=== PATIENT | female | born 1930 | race Caucasian/White ===

== ENCOUNTER 2016-10-03 13:02 | Day surgery (SDC) | payer OTHER ==
[~2016-10-03 13:02] MED LIST: HCTZ50TA PO; MAGN30TA PO; OMEP20TA PO; SIMV40TA PO
[2016-10-03 15:15] VITALS: BP 167/61; PULSE 64; RESP 20; O2SAT 96
--- NOTE | 2016-10-03 15:20 | RADRPT ---
EXAM DATE/TIME: 10/03/2016 13:45 [facility] COMPARISON: No previous studies available for comparison. EXTERNAL COMPARISON : [facility], CT Soft Tissue Neck, August 17, 2016 INDICATIONS : Right neck lymph node enlarged. MEDICAL HISTORY : Carcinoma, breast. Hypertension. CKD. SURGICAL HISTORY : Mastectomy, bilateral. Left knee surgery. ENCOUNTER: Initial ACUITY: 2 months PAIN SCORE: 0/10 LOCATION: Right neck. ORGAN: Right lymph node SPECIMENS: Three core specimen(s) submitted for pathologic evaluation. DEVICE: 20 gauge Bio Pince needle Post procedure scanning reveals no hematoma or other complication. TECHNIQUE: 1. Ultrasound guidance for needle biopsy. 2. Needle biopsy. The risks, benefits, and alternatives to ultrasound guided needle biopsy were explained to the patien t in detail including the risk of bleeding and infection. Written and verbal informed consent was ob tained. With the patient on the ultrasound table, images were obtained. Overlying skin was prepped and drape d in the usual sterile fashion and Lidocaine was utilized as a local anesthetic. Under direct ultrasound guidance 3, 18 gauge cores were obtained and submitted for pathological relat ion. 2 slides were submitted. Material was submitted in formalin and RPMI. The patient tolerated the procedure well and left the ultrasound suite in stable condition. CONCLUSION: Uncomplicated ultrasound guided needle biopsy. Oswaldo Lock MD FACR on October 03, 2016 at 15:17 Board Certified Radiologist. This report was verified electronically.
[2016-10-03 15:30] VITALS: BP 176/53; PULSE 72; RESP 20; TEMP 97.7; O2SAT 97
[2016-10-03] MEDS ORDERED: SODIUM BICARBONATE 8.4% INJ 50 ML ONE (16:03)
[2016-10-03] MEDS ORDERED: LIDOCAINE HCL 1% 30 ML VIAL ONE (16:03)
== END 2016-10-03 15:50 | disposition home or self-care (01) ==
LOC: HRAD 13:02 → HRIP 13:03 → HRAD 15:50
PROVIDERS: ATTEND Family Medicine
DX: R59.9 Enlarged lymph nodes, unspecified (principal); I12.9 Hypertensive chronic kidney disease with stage 1 through stage 4 chronic kidney disease, or unspecified chronic kidney disease; N18.9 Chronic kidney disease, unspecified; Z85.3 Personal history of malignant neoplasm of breast
CPT/HCPCS: 38505; 76942; 88184; 88185; 88280; 88305; 88333; 88341; 88342; 88377

== ENCOUNTER 2016-11-23 09:25 | Day surgery (SDC) | payer OTHER ==
[2016-11-23] VITALS (7 sets, daily range): BP systolic 122–153; BP diastolic 45–85; PULSE 77–102; RESP 18–20; TEMP 97.9; O2SAT 96–100
[~2016-11-23] VITALS: Ht 149.9 cm; Wt 53.6 kg
[2016-11-23] MEDS ORDERED: SIMV40TA PO (09:58)
[2016-11-23] MEDS ORDERED: TRIA1TAB5 PO (09:58)
[2016-11-23] MEDS ORDERED: MULTTAB67 PO (09:58)
[2016-11-23] MEDS ORDERED: ACET-703 PO (09:58)
[2016-11-23] MEDS ORDERED: SODIUM CHLOR 0.9% 1000 ML INJ 1,000 ML IV SCH (10:15)
[2016-11-23 10:18] LABS: AUTOMATED NEUTROPHIL # 7.4 TH/MM3 (1.8-7.7); BASOPHIL % 0.5 % (0.0-2.0); EOSINOPHIL # 0.1 TH/MM3 (0-0.4); HEMATOCRIT 31.8 % (35.0-46.0); LYMPH % 12.8 % (9.0-44.0); LYMPHOCYTE # 1.2 TH/MM3 (1.0-4.8); MEAN CORPUSCULAR HEMOGLOBIN 32.5 PG (27.0-34.0); MEAN CORPUSCULAR HGB CONC 33.9 % (32.0-36.0); MONO % 9.4 % (0.0-8.0); NEUT % 76.3 % (16.0-70.0); PLATELET COUNT 436 TH/MM3 (150-450); RED BLOOD COUNT 3.32 MIL/MM3 (4.00-5.30); RED CELL DISTRIBUTION WIDTH 13.7 % (11.6-17.2); WHITE BLOOD COUNT 9.6 TH/MM3 (4.0-11.0)
[2016-11-23 10:19] LABS: HEMO FLAGS AUTO DIFF
[2016-11-23 10:28] LABS: APTT (PATIENT) 22.6 SEC (24.3-30.1); PROTHROMBIN TIME - PATIENT 10.7 SEC (9.8-11.6)
[2016-11-23] MEDS ORDERED: fentaNYL CITRATE 250 MCG/5 ML AMP ONE (10:49)
[2016-11-23] MEDS ORDERED: MIDAZOLAM HCL 5 MG/5 ML VIAL ONE (10:49)
[2016-11-23] MEDS ORDERED: LIDOCAINE 1%/EPINEPHrine 1:100,000 SOLN 20 ML VIAL ONE (10:51)
[2016-11-23 10:55] LABS: BANDS 3 % (0-6); EOSINOPHILS 2 % (0-4); METAMYELOCYTES 1 % (0-1); NEUTROPHIL # MANUAL DIFF 7.7 TH/MM3 (1.8-7.7); POLYS (SEG NEUTROPHILS) 76 % (16-70); WBC DIFF SAMPLE 100
[2016-11-23 10:56] LABS: PLATELET ESTIMATE SMEAR HIGH (NORMAL); SCAN/DIFF FINAL DIFF MANUAL
[2016-11-23 10:58] LABS: PLATELET MORPHOLOGY NORMAL (NORMAL)
[2016-11-23 12:32] LABS: BONE MARROW PROCESSING COMPLETE; IRON STAIN DONE; JENNER GIEMSA STAIN DONE
--- NOTE | 2016-11-23 13:29 | RADRPT ---
EXAM DATE/TIME: 11/23/2016 11:09 [facility] COMPARISON: No previous studies available for comparison. INDICATIONS : Bone marrow biopsy, lymphoma. SEDATION TIME: 40 minutes BIOPSY SITE: Right MEDICATION(S): 1.) 2.5 mg midazolam (Versed) IV 2.) 125 mcg fentanyl (Sublimaze) IV DEVICE(S): 1.) 11 gauge Bone marrow biopsy needle MEDICAL HISTORY : None. SURGICAL HISTORY : None. ENCOUNTER: Initial ACUITY: 1 day PAIN SCORE: 1/10 LOCATION: pelvis A total of one core specimen(s) were obtained and sent to the laboratory for pathologic evaluation. PROCEDURE: 1. CT guided bone marrow biopsy. 2. Conscious sedation with continuous EKG and oximetry monitoring. 3. EKG and oximetry remained stable throughout the procedure. Prior to the procedure informed consent was obtained. Any appropriate prior imaging studies were rev iewed. Using automated exposure control and adjustment of the mA and/or kV according to patient size , radiation dose was kept as low as reasonably achievable to obtain optimal diagnostic quality images . The site was prepped in a sterile fashion. Full sterile technique was used, including cap, mask, eber rile gloves and gown and a large sterile sheet. Hand hygiene and 2% chlorhexidine and/or betadine/al cohol prep was utilized per protocol for cutaneous antisepsis. The skin and subcutaneous tissues wer e infiltrated with local anesthetic solution. With CT guidance the previously identified target was localized. Biopsy was performed using the presc ribed needle as above. Following biopsy marrow aspiration was performed with repeat puncture. Adequa te hemostasis was obtained with compression at the puncture site. Follow-up CT scan reveals no hemorrhage. Conscious sedation was performed with the prescribed dosages and duration as above in the presence of an independent trained radiology nurse to assist in the monitoring of the patient. EKG and oximetry remained stable throughout the procedure. The patient tolerated the procedure well and there were no complications. The patient was sent to Radiology Outpatient Unit in stable condition. CONCLUSION: 1. Uncomplicated CT guided bone marrow aspirate. 2. Uncomplicated CT guided bone marrow biopsy. Elpidio Simpson MD on November 23, 2016 at 13:27 Board Certified Radiologist. This report was verified electronically.
== END 2016-11-23 14:03 | disposition home or self-care (01) ==
LOC: HRAD 09:25 → HRIP 09:27 → HRAD 14:03
PROVIDERS: ATTEND Internal Medicine Hematology & Oncology
DX: C82.00 Follicular lymphoma grade I, unspecified site (principal)
CPT/HCPCS: 38221; 77012; 85007; 85027; 85097; 85610; 85730; 88184; 88185; 88237; 88264; 88280; 88305; 88311; 88313; C1830; G0364; J2250; J3010; J7030

== ENCOUNTER 2016-12-27 06:07 | Day surgery (SDC) | payer OTHER ==
[~2016-12-27] VITALS: Ht 149.9 cm; Wt 55.9 kg
[~2016-12-27 06:07] MED LIST changes: +ACET-703 PO; -HCTZ50TA PO; -MAGN30TA PO; +MULTTAB67 PO; -OMEP20TA PO; +TRIA1TAB5 PO
[2016-12-27 06:36] VITALS: BP 196/72; PULSE 75; RESP 20; TEMP 97.8; O2SAT 97
[2016-12-27] MEDS ORDERED: ceFAZolin 2 GM PREMIX 50 ML - implanted port/tunneled catheter insertion IV SCH (07:00)
[2016-12-27] MEDS ORDERED: SODIUM CHLORIDE 0.9% 1000 ML IV SCH (07:00)
[2016-12-27] MEDS ORDERED: VANCOMYCIN 1000 MG/NS 250 ML - implanted port/tunneled catheter IV SCH ×2 (07:00)
[2016-12-27] MEDS ORDERED: POVIDONE IODINE 5% (ANTISEPSIS KIT) 4 APPLICATIONS EACH NARE SCH (07:00)
[2016-12-27] MEDS ORDERED: CHLORHEXIDINE GLUCONATE 2 % 1 PACK (2 CLOTHS) TOPICAL SCH (07:00)
[2016-12-27 07:06] LABS: AUTOMATED NEUTROPHIL # 3.8 TH/MM3 (1.8-7.7); BASOPHIL # 0.1 TH/MM3 (0-0.2); BASOPHIL % 0.9 % (0.0-2.0); EOSINOPHIL # 0.5 TH/MM3 (0-0.4); EOSINOPHIL % 7.9 % (0.0-4.0); HEMATOCRIT 29.5 % (35.0-46.0); HEMO FLAGS DIFF FINAL; LYMPH % 20.7 % (9.0-44.0); LYMPHOCYTE # 1.4 TH/MM3 (1.0-4.8); MEAN CORPUSCULAR HEMOGLOBIN 33.2 PG (27.0-34.0); MEAN CORPUSCULAR HGB CONC 33.9 % (32.0-36.0); MONO % 13.4 % (0.0-8.0); NEUT % 57.1 % (16.0-70.0); PLATELET COUNT 235 TH/MM3 (150-450); RED BLOOD COUNT 3.01 MIL/MM3 (4.00-5.30); RED CELL DISTRIBUTION WIDTH 14.3 % (11.6-17.2); WHITE BLOOD COUNT 6.6 TH/MM3 (4.0-11.0)
[2016-12-27] MEDS ORDERED: fentaNYL CITRATE 250 MCG/5 ML AMP ONE (07:39)
[2016-12-27] MEDS ORDERED: MIDAZOLAM HCL 5 MG/5 ML VIAL ONE (07:39)
[2016-12-27] MEDS ORDERED: LIDOCAINE 1%/EPINEPHrine 1:100,000 SOLN 20 ML VIAL ONE (08:27)
[2016-12-27] MEDS ORDERED: SODIUM CHLORIDE 0.9% FLUSH 10 ML FLUSH IVF PRN (09:30)
--- NOTE | 2016-12-27 09:45 | PD.RAD ---
Post Procedure Progress Note Pre Procedure Diagnosis: (1) Follicular lymphoma Post Procedure Diagnosis: (1) Follicular lymphoma Procedure Date: Dec 27, 2016 Supervising Radiologist: En Hong Proceduralist/Assist: Rivas Woody RT(R), RT Wesley(R)() Anesthesia: Local, Analgesia, Conscious Sedation Plan of Activity Patient to Unit: [facility] Patient Condition: Good See PACS Report for procedural detail/treatment Central Venous Access Device Procedure 1 Right Subclavian Infusaport Placement single lumen Luxembourger: 8 Findings: Bulky cervical adenopathy precluded jugular access. Multiple varicosities on chest bilaterally may indicate some central venous stenosis. Occasional chest wall bleeding varicosity required cauterization or suture ligation En Hong MD Dec 27, 2016 09:45
[2016-12-27 09:50] VITALS: BP 143/71; PULSE 74; RESP 18; TEMP 97.6; O2SAT 95
[2016-12-27 10:05] VITALS: BP 121/51; PULSE 76; RESP 16; O2SAT 93
[2016-12-27 10:35] VITALS: BP 124/63; PULSE 74; RESP 18; O2SAT 94
[2016-12-27 11:05] VITALS: BP 124/49; PULSE 69; RESP 16; O2SAT 92
--- NOTE | 2016-12-28 11:02 | RADRPT ---
EXAM DATE/TIME: 12/27/2016 08:37 [facility] COMPARISON: No previous studies available for comparison. INDICATIONS : Patient with follicular lymphoma in need of port placement. MEDICAL HISTORY : 1.Anemia 2.Breast cancer 3.Follicular cancer 4.Cataracts 5.HTN 6.Hemorrhoids 7.High cholesterol 8.Multinodular goiters 9.Osteoarthritis 10.Osteopenia 11.Thyroid disease SURGICAL HISTORY : 1.Thyroid biopsy 2.Breast biopsy 3.Cataract removal 4.Mastectomy bilateral 5.Neck biopsy 6.Colonoscopy 7.Left knee surgery 8.Lumpectomy ENCOUNTER: Initial ACUITY: 4-6 months PAIN SCORE: 0/10 FLUORO TIME: 0.9 minutes IMAGE SERIES: 1 SEDATION TIME: 60 minutes ACCESS: Right subclavian vein SEDATION: 1.) 1.5 mg midazolam (Versed) IV 2.) 75 mcg fentanyl (Sublimaze) IV Prophylactic antibiotics were administered with appropriate pre-procedure timing. Vancomycin within 2 hours of procedure, Ancef (or alternative) within 1 hour of procedure. DEVICE: 1. 8 Tunisian single lumen Bard Power Port PROCEDURE : 1. Continuous pulse oximetry and EKG monitoring. 2. Intravenous conscious sedation. 3. Ultrasound guidance for venous access. 4. Fluoroscopic guided implantable central venous port placement. The patient was placed supine. The neck was prepped in sterile fashion. Full sterile technique was u sed, including cap, mask, sterile gloves and gown, and a large sterile sheet. The neck was interroga anita sonographically demonstrating bilateral, extensive bulky adenopathy around the jugular veins. In fact, the jugular veins are quite diminutive due to external compression. Therefore, port catheter wa s placed in the right subclavian system. Hand hygiene and 2% chlorhexidine Betadine was utilized per protocol for cutaneous antisepsis with appropriate dry time for site. The skin and subcutaneous tiss ues were infiltrated with local anesthetic solution. Under direct ultrasound guidance, central venous access was accomplished in the targeted vessel. The ultrasound images depicting access guidance were stored and saved to PACS for permanent record. A s ubcutaneous pocket was created using blunt dissection. The port was introduced to the pocket. The c atheter tubing was fed through a subcutaneous tunnel to the venotomy site. The catheter tubing was c ut to a suitable length and then was introduced through a valved Peel-Away sheath and positioned with catheter tubing tip at the cavo-atrial junction level. The pocket incision was closed with subcutic ular Vicryl suture. Steri-Strips were applied. The port was flushed and locked with heparin solutio n per protocol. Sterile dressing was applied to the site. The patient tolerated the procedure well. Conscious sedation was performed with the prescribed dosages and duration as above in the presence of an independent trained radiology nurse to assist in the monitoring of the patient. EKG and oximetry remained stable throughout the procedure. The patient tolerated the procedure well and there were no complications. The patient was sent to post anesthesia recovery in stable condition. CONCLUSION: Uncomplicated ultrasound and fluoroscopic guided implanted central venous port catheter placement as described in detail above. An 8 Tunisian Power port was placed. Right subclavian port was placed due to bulky adenopathy in the neck bilaterally En Hong MD on December 28, 2016 at 10:56 Board Certified Radiologist. This report was verified electronically.
== END 2016-12-27 11:40 | disposition home or self-care (01) ==
LOC: HROP 06:07 → HRIP 06:11 → HROP 11:40
PROVIDERS: ATTEND Internal Medicine Hematology & Oncology
DX: C82.90 Follicular lymphoma, unspecified, unspecified site (principal); Z85.3 Personal history of malignant neoplasm of breast; I10 Essential (primary) hypertension; E78.00 Pure hypercholesterolemia, unspecified; E07.9 Disorder of thyroid, unspecified; M85.80 Other specified disorders of bone density and structure, unspecified site
CPT/HCPCS: 36561; 76937; 77001; 85025; 99152; 99153; C1788; J0690; J1642; J2250; J3010; J3370; J7030; J7050

== ENCOUNTER 2017-10-02 12:42 | Emergency (ER) | payer OTHER ==
[~2017-10-02] VITALS: Ht 149.9 cm; Wt 60.0 kg
[~2017-10-02 12:42] MED LIST changes: -MULTTAB67 PO
[2017-10-02 13:01] VITALS: BP 141/67; PULSE 87; RESP 18; TEMP 98.1; O2SAT 98
[2017-10-02 13:04] VITALS: BP 141/67; PULSE 87; RESP 18; TEMP 98.1; O2SAT 98
--- NOTE | 2017-10-02 14:50 | PD ---
HPI Chief Complaint: Chest Pain Time Seen by Provider: 14:06 Travel History International Travel<30 days: No Contact w/Intl Traveler<30days: No Traveled to known affect area: No History of Present Illness HPI 87-year-old female that presents to the ED for evaluation of chest pain. Patient has had chest pain and congestion as well as cough for the past month. Per patient the pain is constant. Per patient she went today to get her chemotherapy for lymphoma and Dr. Cheng evaluated her and recommended that she come here to get evaluated because of her chest pain. Per patient she finished a chemotherapy today. She states having congestion. No sick contacts. She's been battling with a lymphoma for a couple years now. Denies any blood thinners. No history of heart disease. No shortness of breath. No urinary or bowel movement issues. No nausea or vomiting. No head injury or chest injury. Nothing makes the chest pain better. Per patient will she was getting her chemotherapy the pain got more significant and this is what brought her here for evaluation. Patient was brought here by ambulance. Patient per patient currently is 6 out of 10. Sharp and in the midsternal area. PFSH Past Medical History Arthritis: Yes Autoimmune Disease: No Heart Rhythm Problems: No Cancer: Yes (BILATERAL BREAST) Cardiovascular Problems: Yes High Cholesterol: Yes Chemotherapy: Yes Chest Pain: No Congestive Heart Failure: No Cerebrovascular Accident: No Diabetes: No Endocrine: No GERD: Yes Genitourinary: No Hiatal Hernia: No Immune Disorder: No Musculoskeletal: No Neurologic: No Psychiatric: No Reproductive: No Respiratory: No Immunizations Current: Yes Migraines: No Radiation Therapy: Yes Seizures: No Thyroid Disease: Yes (goiters ) Ulcer: No Past Surgical History Abdominal Surgery: Yes (DOUBLE MASTECTOMY) Cardiac Surgery: Yes Eye Surgery: Yes (RIGHT CATARACT SURGERY) Pacemaker: No Social History Alcohol Use: No Tobacco Use: No Substance Use: No Allergies-Medications (Allergen,Severity, Reaction): Coded Allergies: No Known Allergies (Unverified Adverse Reaction, Unknown, 10/02/17) Reported Meds & Prescriptions Reported Meds & Active Scripts Active Reported Tylenol Extra Strength (Acetaminophen) 500 Mg Tab 500 Mg PO Q4-6H PRN Simvastatin 40 Mg Tab 40 Mg PO HS Triamterene-Hydrochlorothiazide 75-50 Mg Tab 1 Tab PO DAILY Review of Systems Except as stated in HPI: all other systems reviewed are Neg Physical Exam Narrative GENERAL: SKIN: Warm and dry. HEAD: Atraumatic. Normocephalic. EYES: Pupils equal and round. No scleral icterus. No injection or drainage. ENT: No nasal bleeding or discharge. Mucous membranes pink and moist. Tongue is midline. No uvula deviation. NECK: Trachea midline. No JVD. CARDIOVASCULAR: Regular rate and rhythm. No murmurs, S3, S4. RESPIRATORY: No accessory muscle use. Clear to auscultation. Breath sounds equal bilaterally. GASTROINTESTINAL: Abdomen soft, non-tender, nondistended. Hepatic and splenic margins not palpable. MUSCULOSKELETAL: Extremities without clubbing, cyanosis, or edema. No obvious deformities. Full range of motion of the upper and lower extremities bilaterally. 2+ pulses bilaterally. NEUROLOGICAL: Awake and alert. No obvious cranial nerve deficits. Motor grossly within normal limits. Five out of 5 muscle strength in the arms and legs. Normal speech. PSYCHIATRIC: Appropriate mood and affect; insight and judgment normal. Data Data Last Documented VS Vital Signs Date Time Temp Pulse Resp B/P (MAP) Pulse Ox O2 Delivery O2 Flow Rate FiO2 10/02/17 13:04 98.1 87 18 141/67 (91) 98 Nasal Cannula 2.00 Orders Orders Electrocardiogram (10/02/17 13:49) Complete Blood Count With Diff (10/02/17 13:49) Comprehensive Metabolic Panel (10/02/17 13:49) Ckmb (Isoenzyme) Profile (10/02/17 13:49) Troponin I (10/02/17 13:49) B-Type Natriuretic Peptide (10/02/17 13:49) Prothrombin Time / Inr (Pt) (10/02/17 13:49) Act Partial Throm Time (Ptt) (10/02/17 13:49) Lipase (10/02/17 13:49) Magnesium (Mg) (10/02/17 13:49) Chest, Single Ap (10/02/17 13:49) Iv Access Insert/Monitor (10/02/17 13:49) Ecg Monitoring (10/02/17 13:49) Oximetry (10/02/17 13:49) MDM Medical Decision Making Medical Screen Exam Complete: Yes Emergency Medical Condition: Yes Medical Record Reviewed: Yes Differential Diagnosis Chest pain versus a typical chest pain versus ACS versus pulmonary embolism versus pneumonia versus medication side effect Narrative Course 87-year-old female that presents to the ED for evaluation of chest pain. Patient was properly examined and was found to have signs and symptoms of unclear etiology concerning for infectious versus pulmonary embolism. Labs and imaging ordered. Case will be signed out to incoming provider pending disposition and plan. Yvon Gray Oct 02, 2017 14:50
--- NOTE | 2017-10-02 15:05 | RADRPT ---
EXAM DATE/TIME: 10/02/2017 14:06 [facility] COMPARISON: No previous studies available for comparison. INDICATIONS : Chest pain. MEDICAL HISTORY : Hypertension. lymphoma, thyroid disease, breast and follicular cancer SURGICAL HISTORY : bilateral mastectomy, lumpectomy ENCOUNTER: Initial ACUITY: 1 day PAIN SCORE: 0/10 LOCATION: Bilateral chest FINDINGS: Right subclavian [id number] with tip in the proximal right atrium. No significant focal pleural or parenchymal opacities. Cardiomediastinal contours are within normal limits given portable technique. Bony thorax is intact. CONCLUSION: 1. No acute cardiopulmonary disease. Vinny Lovett MD on October 02, 2017 at 15:02 Board Certified Radiologist. This report was verified electronically.
[2017-10-02 15:15] VITALS: BP 141/67; PULSE 87; RESP 18; TEMP 98.1; O2SAT 98
[2017-10-02 15:27] LABS: BASOPHIL % 0.1 % (0.0-2.0); EOSINOPHIL % 0.1 % (0.0-4.0); HEMATOCRIT 30.6 % (35.0-46.0); HEMOGLOBIN 10.4 GM/DL (11.6-15.3); LYMPH % 2.4 % (9.0-44.0); LYMPHOCYTE # 0.3 TH/MM3 (1.0-4.8); MEAN CELL VOLUME 99.2 FL (80.0-100.0); MEAN CORPUSCULAR HEMOGLOBIN 33.8 PG (27.0-34.0); MEAN CORPUSCULAR HGB CONC 34.1 % (32.0-36.0); MONO % 2.1 % (0.0-8.0); MONOCYTE # 0.2 TH/MM3 (0-0.9); NEUT % 95.3 % (16.0-70.0); PLATELET COUNT 166 TH/MM3 (150-450); RED BLOOD COUNT 3.09 MIL/MM3 (4.00-5.30); RED CELL DISTRIBUTION WIDTH 14.5 % (11.6-17.2); WHITE BLOOD COUNT 10.5 TH/MM3 (4.0-11.0)
[2017-10-02 15:39] LABS: PROTHROMBIN TIME - PATIENT 9.9 SEC (9.8-11.6)
[2017-10-02 15:57] LABS: ALT (GPT) 42 U/L (10-53); AST (GOT) 42 U/L (15-37); BICARBONATE 26.7 MEQ/L (21.0-32.0); BLOOD UREA NITROGEN 35 MG/DL (7-18); CALCIUM 8.6 MG/DL (8.5-10.1); CHLORIDE 104 MEQ/L (98-107); CREATININE 1.19 MG/DL (0.50-1.00); GLOMERULAR FILTRATION RATE 43 ML/MIN (>89); GLUCOSE,RANDOM 112 MG/DL (74-106); LIPASE 108 U/L (73-393); MAGNESIUM 1.9 MG/DL (1.5-2.5); SODIUM (NA) 141 MEQ/L (136-145)
[2017-10-02 16:02] LABS: ALKALINE PHOSPHATASE 58 U/L (45-117); TOTAL BILIRUBIN ADULT 0.3 MG/DL (0.2-1.0); TROPONIN I 0.02 NG/ML (0.02-0.05)
[2017-10-02] MEDS ORDERED: IOHEXOL 350 MG/ML 10 ML VIAL (for RAD DIAG) IVCONTRAST ONE (16:32)
--- NOTE | 2017-10-02 16:41 | RADRPT ---
EXAM DATE/TIME: 10/02/2017 16:11 [facility] COMPARISON: No previous studies available for comparison. INDICATIONS : Chest pain for 1 month. IV CONTRAST: 60 cc Omnipaque 350 (iohexol) IV RADIATION DOSE: 8.49 CTDIvol (mGy) MEDICAL HISTORY : Carcinoma, breast. Hypertension. Lymphoma. SURGICAL HISTORY : None. ENCOUNTER: Initial ACUITY: 1 month PAIN SCALE: 4/10 LOCATION: Bilateral chest TECHNIQUE: Volumetric scanning of the chest was performed using a pulmonary embolism protocol MIP images were re constructed. Using automated exposure control and adjustment of the mA and/or kV according to patien t size, radiation dose was kept as low as reasonably achievable to obtain optimal diagnostic quality images. DICOM format image data is available electronically for review and comparison. Follow-up recommendations for detected pulmonary nodules are based at a minimum on nodule size and pa tient risk factors according to Fleischner Society Guidelines. FINDINGS: PULMONARY ARTERIES: No filling defects are seen in the pulmonary arteries through the segmental level. LUNGS: There are some minimal groundglass densities in the lower lobes. Scarring in the right upper lobe ant eriorly with minimal nodularity measuring 1 cm.. PLEURAE: There is no pleural thickening or pleural effusion. MEDIASTINUM: There is good visualization of the great vessels of the middle mediastinum. No evidence of mediastin al or hilar adenopathy/mass. Coronary artery calcifications. MUSCULOSKELETAL: Within normal limits for patient age. MISCELLANEOUS: The visualized upper abdominal organs demonstrate no acute abnormality. Enlarged thyroid gland thinni ng dominant nodule the left lobe which are calcified. Right-sided portacatheter with tip in the right atrium. CONCLUSION: 1. No evidence for pulmonary embolism. 2. Enlarged thyroid gland containing bilateral thyroid nodules greater on the left. Nonemergent dedic ated thyroid sonogram recommended. 3. Minimal groundglass densities in the lower lobes could be atelectasis, inflammation or less likely infection. 4. Coronary artery calcifications. 5. Probable parenchymal scarring anterior right upper lobe with slight nodularity measuring 1 cm. Elpidio Simpson MD on October 02, 2017 at 16:36 Board Certified Radiologist. This report was verified electronically.
[2017-10-02] MEDS ORDERED: RESP: ALBUTEROL 2.5 MG/IPRATROPIUM 0.5 MG NEB (SCH) INH ONE (17:15)
--- NOTE | 2017-10-02 17:15 | PD ---
Physical Exam Date Seen by Provider: Oct 02, 2017 Time Seen by Provider: 17:06 Narrative 87-year-old female with history of lymphoma currently under Dr. Cheng' s care, receiving chemotherapy, was sent to the emergency department after receiving her chemotherapy this morning for complaints of chest discomfort. Patient was evaluated and worked up in the ambulance linder, by Yvon Raymond. Labs, chest x-ray, and CT scan were ordered. Patient reports a history of cough for approximately the last 7-10 days. Patient has no smoking history. She denies nausea or vomiting. She states her cough has been keeping her up at night, and her chest is uncomfortable when she coughs. She denies significant fever, chills, or shortness of breath. She has no known drug allergies Data Data Last Documented VS Vital Signs Date Time Temp Pulse Resp B/P (MAP) Pulse Ox O2 Delivery O2 Flow Rate FiO2 10/02/17 15:15 98.1 87 18 141/67 (91) 98 Nasal Cannula 2.00 Orders Orders Electrocardiogram (10/02/17 13:49) Complete Blood Count With Diff (10/02/17 13:49) Comprehensive Metabolic Panel (10/02/17 13:49) Ckmb (Isoenzyme) Profile (10/02/17 13:49) Troponin I (10/02/17 13:49) B-Type Natriuretic Peptide (10/02/17 13:49) Prothrombin Time / Inr (Pt) (10/02/17 13:49) Act Partial Throm Time (Ptt) (10/02/17 13:49) Lipase (10/02/17 13:49) Magnesium (Mg) (10/02/17 13:49) Chest, Single Ap (10/02/17 13:49) Iv Access Insert/Monitor (10/02/17 13:49) Ecg Monitoring (10/02/17 13:49) Oximetry (10/02/17 13:49) Ct Pulmonary Angiogram (10/02/17 ) Iohexol 350 Inj (Omnipaque 350 Inj) (10/02/17 16:32) Albuterol-Ipratropium Neb (Duoneb Neb) (10/02/17 17:15) Heparin Central Flush (Heparin Central F (10/02/17 17:45) Labs Laboratory Tests Test 10/02/17 15:10 White Blood Count 10.5 TH/MM3 Red Blood Count 3.09 MIL/MM3 Hemoglobin 10.4 GM/DL Hematocrit 30.6 % Mean Corpuscular Volume 99.2 FL Mean Corpuscular Hemoglobin 33.8 PG Mean Corpuscular Hemoglobin Concent 34.1 % Red Cell Distribution Width 14.5 % Platelet Count 166 TH/MM3 Mean Platelet Volume 7.0 FL Neutrophils (%) (Auto) 95.3 % Lymphocytes (%) (Auto) 2.4 % Monocytes (%) (Auto) 2.1 % Eosinophils (%) (Auto) 0.1 % Basophils (%) (Auto) 0.1 % Neutrophils # (Auto) 10.0 TH/MM3 Lymphocytes # (Auto) 0.3 TH/MM3 Monocytes # (Auto) 0.2 TH/MM3 Eosinophils # (Auto) 0.0 TH/MM3 Basophils # (Auto) 0.0 TH/MM3 CBC Comment DIFF FINAL Differential Comment Prothrombin Time 9.9 SEC Prothromb Time International Ratio 1.0 RATIO Activated Partial Thromboplast Time 27.9 SEC Blood Urea Nitrogen 35 MG/DL Creatinine 1.19 MG/DL Random Glucose 112 MG/DL Total Protein 7.0 GM/DL Albumin 3.0 GM/DL Calcium Level 8.6 MG/DL Magnesium Level 1.9 MG/DL Alkaline Phosphatase 58 U/L Aspartate Amino Transf (AST/SGOT) 42 U/L Alanine Aminotransferase (ALT/SGPT) 42 U/L Total Bilirubin 0.3 MG/DL Sodium Level 141 MEQ/L Potassium Level 3.2 MEQ/L Chloride Level 104 MEQ/L Carbon Dioxide Level 26.7 MEQ/L Anion Gap 10 MEQ/L Estimat Glomerular Filtration Rate 43 ML/MIN Total Creatine Kinase 47 U/L Troponin I 0.02 NG/ML B-Type Natriuretic Peptide 218 PG/ML Lipase 108 U/L [facility] Medical Record Reviewed: Yes Supervised Visit with CAT: Yes Differential Diagnosis Upper respiratory infection. Cough. Wheezing. Chest wall pain. Pleurisy. Pneumonia. Bronchitis. Narrative Course Patient is medically stable at time of exam. She is noted to have a wet sounding cough. Labs are reviewed showing a stable CBC without significant leukocytosis. CMP is also stable as well. Cardiac enzymes are normal. Chest x-ray showed no acute pathology per radiologist. CT scan showed: CONCLUSION: 1. No evidence for pulmonary embolism. 2. Enlarged thyroid gland containing bilateral thyroid nodules greater on the left. Nonemergent dedicated thyroid sonogram recommended. 3. Minimal groundglass densities in the lower lobes could be atelectasis, inflammation or less likely infection. 4. Coronary artery calcifications. 5. Probable parenchymal scarring anterior right upper lobe with slight nodularity measuring 1 cm. Call is placed to Dr. Cheng's office, and patient was discussed with Dr. Almanzar. Patient is given DuoNeb 1. Patient feels much improved after her DuoNeb. Breath sounds were improved as well. Patient will be continued on azithromycin dosepak as prescribed. Patient given prednisone 20 mg daily for 5 days. Patient is given albuterol metered-dose inhaler 2 puffs every 4-6 hours when necessary. Patient is to follow-up with Dr. Cheng tomorrow as discussed. Diagnosis Primary Impression: Wheezy bronchitis Referrals: Sher Cheng MD 1 day Patient Instructions: Acute Bronchitis (ED), General Instructions, How to Use a Metered-Dose Inhaler (ED) Additional Instruction: Patient will be continued on azithromycin dosepak as prescribed. Patient given prednisone 20 mg daily for 5 days. Patient is given albuterol metered-dose inhaler 2 puffs every 4-6 hours when necessary. Patient is to follow-up with Dr. Cheng tomorrow as discussed. Med/Other Pt SpecificInfo: Prescription(s) given Scripts Azithromycin (Azithromycin) 250 Mg Tab 250 MG PO DIRECTED for Infection, #6 TAB 0 Refills Take 2 tabs (500 mg) on day 1 then 1 tab daily x 4 days. Prov: Clemente Arredondo MD 10/02/17 Albuterol 18 GM Inh (Ventolin Hfa 18 GM Inh) 90 Mcg/Act Aer 2 PUFF INH Q4-6H Y for SHORTNESS OF BREATH, #1 INHALER 0 Refills Prov: Clemente Arredondo MD 10/02/17 Disposition: 01 DISCHARGE HOME Condition: Stable Hu Trujillo Oct 02, 2017 17:15
[2017-10-02] MEDS ORDERED: VENTAER INH (17:32)
[2017-10-02] MEDS ORDERED: AZIT250T3 PO (17:32)
[2017-10-02] MEDS ORDERED: PRED20 PO (18:03)
[2017-10-02 18:21] VITALS: BP 144/78
--- NOTE | 2017-10-03 15:52 | EKG ---
Date Performed: 10/02/2017 Time Performed: 16:13:57 PTAGE: 87 years EKG: Sinus rhythm WITH OCCASIONAL SUPRAVENTRICULAR PREMATURE COMPLEXES RIGHT BUNDLE BRANCH BLOCK ABNORMAL ECG NO PREVIOUS TRACING DOCTOR: Amanda Kelley Interpretating Date/Time 10/03/2017 15:51:02
== END 2017-10-02 18:36 | disposition home or self-care (01) ==
LOC: NEPC 12:42
DX: J40 Bronchitis, not specified as acute or chronic (principal); R06.2 Wheezing; R94.31 Abnormal electrocardiogram [ECG] [EKG]; R05 Cough
CPT/HCPCS: 71045; 71275; 80053; 82550; 83690; 83735; 83880; 84484; 85025; 85610; 85730; 93005; 94664; 99285; Q9967